=== PATIENT | male | born 1955 ===

== ENCOUNTER → 2017-11-17 | Outpatient (CLI) | payer BC ==
--- NOTE | 2017-11-17 10:40 | Diagnostic Imaging Report ---
Indication: Abnormal thyroid function tests Technique: Grayscale and duplex images of the thyroid Comparison: none Findings: Right thyroid lobe measures for cm length x 1.4 cm AP. Left thyroid lobe measures 3.3 cm length x 1.2 cm AP. Both thyroid lobes demonstrate normal echogenicity. In the left thyroid lobe upper pole or almost completely solid (2 points), hypoechoic (2 points), not [id number] (0 points), smooth (0 points) nodule with none echogenic foci or large comet-tail artifacts (0 points), measuring 0.2 cm in the maximum diameter totals 4 points, consistent with ACR TI-RADS Category TR4.. Impression: ACR TI-RADS Category TR4 nodule left upper pole thyroid. Recommendation: For TR4 nodules less than 1.0 cm, recommend no fine needle aspiration or follow-up. No other significant abnormality Tai FN, Barbara WD, Tristan EG, et al. ACR Thyroid Imaging, Reporting and Data System (TI-RADS): White Paper of the ACR TI-RADS Committee. J Am Iraj Radiol 2017;14:587-595.
--- NOTE | 2017-11-17 11:57 | Diagnostic Imaging Report ---
Indication: Difficulty urinating Technique: Grayscale and duplex images of the bladder and prostate Comparison: none Findings: Prevoid bladder is distended, calculated volume 569 mL. Postvoid bladder volume calculated at 151 mL. Calculated prostate volume is 35 mL debris is noted within the bladder lumen. Bilateral ureteral jets are seen with color Doppler. Impression: Distended prevoid bladder. 151 mL postvoid bladder volume Prostate volume 36 mL Debris seen within the bladder, nonspecific
== END | disposition home or self-care (01) ==
LOC: ULS 09:12
DX: E04.1 Nontoxic single thyroid nodule (principal); R39.198 Other difficulties with micturition; N40.0 Benign prostatic hyperplasia without lower urinary tract symptoms; E03.9 Hypothyroidism, unspecified
CPT/HCPCS: 76536; 76856